=== PATIENT | male | born 1965 | race Caucasian/White ===

== ENCOUNTER → 2024-04-07 14:34 | Outpatient (REF) | payer OTHER, SELFPAY | LOC: RAD 14:34 | PROVIDERS: ATTENDING PHYSICIAN Radiology Diagnostic Radiology; FAMILY PHYSICIAN Family Medicine; REFERRING PHYSICIAN Specialist | DX: H05.50 Retained (old) foreign body following penetrating wound of unspecified orbit (principal) | CPT/HCPCS: 70030 ==

== ENCOUNTER → 2024-04-15 19:52 | Outpatient (REF) | payer OTHER, SELFPAY | LOC: MRI 3T 19:52 | PROVIDERS: ATTENDING PHYSICIAN Specialist; FAMILY PHYSICIAN Family Medicine | DX: R97.20 Elevated prostate specific antigen [PSA] (principal) | CPT/HCPCS: 72197; A9575 ==

== ENCOUNTER → 2024-05-26 06:38 | Day surgery (SDC) | payer OTHER, SELFPAY | LOC: GI 06:38 | PROVIDERS: ATTENDING PHYSICIAN Surgery; FAMILY PHYSICIAN Family Medicine | DX: Z12.11 Encounter for screening for malignant neoplasm of colon (principal); K57.30 Diverticulosis of large intestine without perforation or abscess without bleeding; D12.0 Benign neoplasm of cecum | CPT/HCPCS: 45380; 88305 ==

== ENCOUNTER → 2024-06-04 12:08 | Outpatient (REF) | payer OTHER, SELFPAY | LOC: PET 12:08 | PROVIDERS: ATTENDING PHYSICIAN Radiology Radiation Oncology | DX: C61 Malignant neoplasm of prostate (principal) | CPT/HCPCS: 78815 ==